=== PATIENT | female | born 1975 | race Caucasian/White ===

== ENCOUNTER 2018-10-28 11:53 | Emergency (ER) | payer OTHER ==
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
[2018-10-28 12:46] LABS: APPEARANCE,URINE SLIGHTLY-CLOUDY; BILIRUBIN,URINE NEGATIVE (NEGATIVE); COLOR,URINE YELLOW; GLUCOSE, URINE NEGATIVE (NEGATIVE); KETONES,URINE NEGATIVE (NEGATIVE); LEUKOCYTE ESTERASE,URINE TRACE (NEGATIVE); NITRITE,URINE NEGATIVE (NEGATIVE); PROTEIN,URINE NEGATIVE (NEGATIVE); URINE SPECIFIC GRAVITY 1.021; UROBILINOGEN,URINE NEGATIVE mg/dL (<2.0)
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
[2018-10-28] MEDS ORDERED: ACETAMINOPHEN 325 MG TABLET PO ONE (17:07)
[2018-10-28] MEDS ORDERED: IBUPROFEN 600 MG TABLET PO ONE (17:07)
[2018-10-28 17:37] VITALS: BP 135/82
== END 2018-10-28 17:26 | disposition home or self-care (01) ==
LOC: ER 11:53
DX: R07.81 Pleurodynia (principal); R10.32 Left lower quadrant pain; R10.814 Left lower quadrant abdominal tenderness; V43.62XA Car passenger injured in collision with other type car in traffic accident, initial encounter; J98.11 Atelectasis; Z87.891 Personal history of nicotine dependence
CPT/HCPCS: 74177; 81001; 99284

== ENCOUNTER 2019-01-10 09:54 | Emergency (ER) | payer BC, OTHER ==
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
[2019-01-10 10:36] LABS: APPEARANCE,URINE CLOUDY; BILIRUBIN,URINE NEGATIVE (NEGATIVE); COLOR,URINE YELLOW; GLUCOSE, URINE NEGATIVE (NEGATIVE); KETONES,URINE NEGATIVE (NEGATIVE); LEUKOCYTE ESTERASE,URINE LARGE (NEGATIVE); NITRITE,URINE NEGATIVE (NEGATIVE); PROTEIN,URINE NEGATIVE (NEGATIVE); URINE SPECIFIC GRAVITY 1.018; UROBILINOGEN,URINE NEGATIVE mg/dL (<2.0)
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
[2019-01-10] MEDS ORDERED: CEPHALEXIN 500 MG CAPSULE PO ONE (11:51)
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
[2019-01-10 12:27] LABS: T.VAGINALIS (WET MOUNT) TRICHOMONAS SEEN; YEAST (WET MOUNT) NO YEAST SEEN
[2019-01-10 12:28] LABS: BACTERIA (WET MOUNT) 3+ BACTERIA SEEN; RBCS (WET MOUNT) 1+ RBCS SEEN; WBCS (WET MOUNT) 2+ WBCS SEEN
[2019-01-10] MEDS ORDERED: METRONIDAZOLE 500 MG TABLET PO ONE (12:57)
[2019-01-10 13:16] VITALS: BP 116/81
[2019-01-10 13:58] LABS: CHLAM PCR NOT DETECTED (NOT DETECT); GON PCR NOT DETECTED (NOT DETECT)
== END 2019-01-10 13:16 | disposition home or self-care (01) ==
LOC: ER 09:54
DX: N76.0 Acute vaginitis (principal); B96.89 Other specified bacterial agents as the cause of diseases classified elsewhere; N30.01 Acute cystitis with hematuria; R10.2 Pelvic and perineal pain; M79.671 Pain in right foot; M25.571 Pain in right ankle and joints of right foot
CPT/HCPCS: 81001; 87210; 87491; 87591; 99283

== ENCOUNTER 2019-07-10 11:50 | Emergency (ER) | payer BC, MEDICAID ==
[2019-07-10] MEDS ORDERED: METHOCARBAMOL 750 MG TABLET PO ONE (12:51)
[2019-07-10] MEDS ORDERED: KETOROLAC TROMETHAMINE 60 MG/2 ML SDV IM ONE (12:51)
--- NOTE | 2019-07-10 12:52 | ER Document Report ---
HPI - HPI Time Seen by Provider: 07/10/19 12:47 Notes: Otherwise healthy 44-year-old female presenting with left knee pain and low back pain. Patient reports she has chronic low back pain and it has been acting up since Monday when she was jumping up and down celebrating for someone's day and twisted her knee as well. Patient ambulated into the emergency department with a steady gait. - REPRODUCTIVE Reproductive: DENIES: : Past Medical History - General Information source: Patient - Social History Smoking Status: Never Smoker Frequency of alcohol use: None Drug Abuse: None Family History: Reviewed & Not Pertinent - Medical History Medical History: Negative Renal/ Medical History: Denies: Hx Peritoneal Dialysis Past Surgical History: Reports: Hx Orthopedic Surgery - Right wrist, Hx Tonsillectomy, Hx Tubal Ligation Vertical Provider Document - CONSTITUTIONAL Notes: PHYSICAL EXAMINATION: GENERAL: Well-appearing, well-nourished and in no acute distress. HEAD: Atraumatic, normocephalic. EYES: Pupils equal round extraocular movements intact, conjunctiva are normal. ENT: Nares patent NECK: Normal range of motion LUNGS: No respiratory distress Musculoskeletal: Normal range of motion, tenderness to palpation to left lumbar paraspinous area, no vertebral tenderness, step-off or deformity. Tenderness to anterior left knee, no erythema, ecchymosis or swelling noted. No crepitus. NEUROLOGICAL: Normal speech, normal gait. PSYCH: Normal mood, normal affect. SKIN: Warm, Dry, normal turgor, no rashes or lesions noted. - INFECTION CONTROL TRAVEL OUTSIDE OF THE [place] IN LAST 30 DAYS: No Course - Re-evaluation Re-evalutation: Patient reports improvement of her back pain after administration of medications here in the emergency department. X-ray of the knee is negative. Patient will be discharged home in stable condition at this time. Encourage follow-up with PCP or Ortho if pain persists. The patient's emergency department workup and current diagnosis were explained to the patient and or family. Follow-up instructions were provided. Medications if prescribed were discussed. Instructions for when to return to the emergency department including specific worrisome symptoms were discussed with the patient and/or family. - Vital Signs Vital signs: Temp Pulse Resp BP Pulse Ox 98.0 F 71 16 148/82 H 97 07/10/19 12:41 07/10/19 12:41 07/10/19 12:41 07/10/19 12:41 07/10/19 12:41 Procedures - Immobilization Left knee Immobilizer type: Chalo wrap, Crutches Performed by: PCT Post-Proc Neuro Vasc Exam: Normal Discharge - Discharge Clinical Impression: Low back pain Qualifiers: Chronicity: chronic Back pain laterality: unspecified Sciatica presence: unspecified whether sciatica present Qualified Code(s): M54.5 - Low back pain Knee pain Qualifiers: Chronicity: acute Laterality: left Qualified Code(s): M25.562 - Pain in left knee Condition: Stable Disposition: HOME, SELF-CARE Additional Instructions: The x-ray of your knee was unremarkable and without any fracture or dislocation. Please follow below directions. Keep the Chalo wrap in place for comfort and support. Ice & Elevation Apply ice packs frequently against the painful area. Many different schedules are recommended, such as "20 minutes on, 20 minutes off" or "one hour ice, two hours rest." If you need to work, you may need to go longer between ice treatments. You should plan to have the area ice packed AT LEAST one-fourth of the time. The ice should be applied over the wrap, tape, or splint, or over a layer of cloth -- not directly against the skin. Some ice bags have a built-in cloth and can be put directly on the skin. Your injured part should be elevated as much as possible over the next 48 hours. Try to keep the injury above the level of the heart. Avoid use of the injured area. Elevation and rest will decrease the swelling. Ibuprofen Ibuprofen is an excellent, safe drug for pain control. In addition, it has potent antiinflammatory effects which are beneficial, especially in the treatment of injuries, arthritis, or tendonitis. It's best to take ibuprofen with food. Persons with ulcer disease or allergy to aspirin should notify their physician of this before taking ibuprofen. Take the medication exactly as prescribed. Don't take additional doses unless instructed to do so by your doctor. If you develop wheezing, shortness of breath, hives, faintness, stomach pain, vomiting, or dark black stools, return for re-evaluation at once. The x-rays were negative for any fracture or dislocation. Please take ibuprofen [id number] as directed to help with pain and inflammation. Forms: Return to Work
--- NOTE | 2019-07-10 13:24 | RADIOLOGY REPORT (SQ) ---
EXAM DESCRIPTION: KNEE LEFT 4 VIEW COMPLETED DATE/TIME: 07/10/2019 1:12 pm REASON FOR STUDY: jumped, now pain COMPARISON: None. NUMBER OF VIEWS: Four views. TECHNIQUE: AP, lateral, and both oblique radiographic images acquired of the left knee. LIMITATIONS: None. FINDINGS: MINERALIZATION: Normal. BONES: No acute fracture or dislocation. JOINT: No effusion. SOFT TISSUES: The quadriceps and patellar tendon silhouettes are intact. There is no prepatellar sof t tissue swelling. OTHER: No other finding. IMPRESSION: No acute osseous abnormality of the left knee. TECHNICAL DOCUMENTATION: JOB ID: [id number] [employer]- All Rights Reserved Reading location - IP/workstation name: [email or web address]
[2019-07-10 14:20] VITALS: BP 131/78
== END 2019-07-10 14:21 | disposition home or self-care (01) ==
LOC: ER 11:50
DX: M25.562 Pain in left knee (principal); G89.29 Other chronic pain; M54.5 Low back pain
CPT/HCPCS: 99283; 96372; 73564; J1885; J3490

== ENCOUNTER 2019-07-29 10:02 | Emergency (ER) | payer SELFPAY ==
[2019-07-29 10:09] VITALS: BP 141/79
[2019-07-29] MEDS ORDERED: ACETAMINOPHEN 325 MG TABLET PO ONE (10:54)
--- NOTE | 2019-07-29 10:58 | ER Document Report ---
HPI - HPI Patient complains to provider of: Left lower leg pain Time Seen by Provider: 07/29/19 10:50 Onset: Other - 1 Onset/Duration: Persistent Pain Level: 1 Context: 44-year-old female presents emergency department complaints of left lower leg calf pain for the past month. Reports she took a trip to [place]. She is not taking control she does not smoke. She reports she may have had a blood clot when she was . She denies injury. Denies fever vomiting diarrhea. Associated Symptoms: None Exacerbated by: Denies Relieved by: Denies Similar symptoms previously: No Recently seen / treated by doctor: No - REPRODUCTIVE Reproductive: DENIES: : - MUSCULOSKELETAL Musculoskeletal: REPORTS: Extremity pain Past Medical History - General Information source: Patient Last Menstrual Period: Reports menopause - Social History Smoking Status: Former Smoker Cigarette use (# per day): No Frequency of alcohol use: None Drug Abuse: None Family History: Reviewed & Not Pertinent Patient has suicidal ideation: No Patient has homicidal ideation: No - Past Medical History Cardiac Medical History: Reports: Hx DVT Renal/ Medical History: Denies: Hx Peritoneal Dialysis GI Medical History: Reports: Hx Gastroesophageal Reflux Disease Past Surgical History: Reports: Hx Orthopedic Surgery - Right wrist, Hx Tonsillectomy, Hx Tubal Ligation Vertical Provider Document - CONSTITUTIONAL Agree With Documented VS: Yes Exam Limitations: No Limitations General Appearance: WD/WN, No Apparent Distress - INFECTION CONTROL TRAVEL OUTSIDE OF THE [place] IN LAST 30 DAYS: No - HEENT HEENT: Atraumatic, Normocephalic - NECK Neck: Supple - RESPIRATORY Respiratory: Breath Sounds Normal, No Respiratory Distress - CARDIOVASCULAR Cardiovascular: Regular Rate - MUSCULOSKELETAL/EXTREMETIES Musculoskeletal/Extremeties: MAEW, FROM, Non-Tender - Left lower leg calf pain nontender palpation good pedal pulse cap refill only than 2 seconds no erythema no warmth no swelling, calf measurements 36 cm bilateral - NEURO Level of Consciousness: Awake, Alert, Appropriate Motor/Sensory: No Motor Deficit - DERM Integumentary: Warm, Dry Course - Re-evaluation Re-evalutation: 07/29/19 10:56 Doppler ordered for left lower leg pain with possible history of DVT. No obvious signs of DVT no erythema no warmth no swelling patient reports pain for the past month. 07/29/19 DVT negative per tech. Patient does not look like she has a DVT. She was instructed on results. Instructed on Motrin for pain follow-up with primary care provider she verbalized understanding to all instructions. Venous Doppler Study 07/29/19 10:53 IMPRESSION: NO EVIDENCE DVT OR SVT IN THE LEFT LEG. - Vital Signs Vital signs: Temp Pulse Resp BP Pulse Ox 98.2 F 85 15 141/79 H 96 07/29/19 10:09 07/29/19 10:09 07/29/19 10:09 07/29/19 10:09 07/29/19 10:09 Discharge - Discharge Clinical Impression: Left leg pain Condition: Stable Disposition: HOME, SELF-CARE Additional Instructions: *You have been evaluated for left lower leg pain *Your Doppler was negative for a blood clot *Take tylenol as indicated for pain *Follow up with your primary care within 1 week for recheck *Return to ED for worsening condition, changes, needs Monitor your blood pressure. Your blood pressure was elevated today. This may be because you were anxious, in pain or because you need medication. It is important to follow up with your primary care provider for full evaluation. Forms: Elevated Blood Pressure
--- NOTE | 2019-07-29 12:30 | RADIOLOGY REPORT (SQ) ---
EXAM DESCRIPTION: VENOUS UNILATERAL LOWER COMPLETED DATE/TIME: 07/29/2019 12:15 pm REASON FOR STUDY: pain to calf reports hx dvt COMPARISON: None. TECHNIQUE: Dynamic and static carmona scale and color images acquired of the left leg venous system. Se lected spectral images acquired with additional compression and augmentation maneuvers. The contralat eral common femoral vein and saphenofemoral junction were also imaged. Images stored on PACS. LIMITATIONS: None. FINDINGS: COMMON FEMORAL: Normal phasicity, compression and augmentation. No visualized echogenic ma terial on carmona scale. No defects on color images. FEMORAL: Normal compression and augmentation. No visualized echogenic material on carmona scale. No defe cts on color images. POPLITEAL: Normal compression, augmentation. No visualized echogenic material on carmona scale. No defec ts on color images. CALF VESSELS: Normal compression, augmentation. No visualized echogenic material on carmona scale. No de fects on color images. GSV and SSV: Normal compression, augmentation. No visualized echogenic material on carmona scale. No def ects on color images. ANY DEEP VENOUS INSUFFICIENCY: No. ANY EVIDENCE OF POPLITEAL CYST: No. OTHER: No other significant finding. CONTRALATERAL COMMON FEMORAL VEIN AND SAPHENOFEMORAL JUNCTION: Normal phasicity, compression and augmentation. No visualized echogenic material on carmona scale. No de fects on color images. IMPRESSION: NO EVIDENCE DVT OR SVT IN THE LEFT LEG. TECHNICAL DOCUMENTATION: JOB ID: [id number] [employer]- All Rights Reserved Reading location - IP/workstation name: [email or web address]
== END 2019-07-29 12:41 | disposition home or self-care (01) ==
LOC: ER 10:02
DX: M79.662 Pain in left lower leg (principal); Z87.891 Personal history of nicotine dependence
CPT/HCPCS: 93971; 99283

== ENCOUNTER 2020-02-06 09:44 | Emergency (ER) | payer SELFPAY ==
[2020-02-06 09:54] VITALS: BP 128/75
--- NOTE | 2020-02-06 10:10 | ER Document Report ---
HPI - HPI Patient complains to provider of: Shoulder pain Time Seen by Provider: 02/06/20 09:48 Onset: Other - This 44-year-old female presents to the emergency room today stating that she has developed pain to her left shoulder subscapular Bob she states she woke up that way she is a side sleeper. Onset/Duration: Waxing and waning Quality of pain: Achy Pain Level: 2 Associated Symptoms: None Exacerbated by: Denies Relieved by: Denies - REPRODUCTIVE Reproductive: DENIES: : Past Medical History - General Information source: Patient - Social History Smoking Status: Never Smoker Cigarette use (# per day): No Chew tobacco use (# tins/day): No Smoking Education Provided: No Frequency of alcohol use: None Drug Abuse: None Family History: Reviewed & Not Pertinent - Past Medical History Cardiac Medical History: Reports: Hx DVT Renal/ Medical History: Denies: Hx Peritoneal Dialysis GI Medical History: Reports: Hx Gastroesophageal Reflux Disease Past Surgical History: Reports: Hx Orthopedic Surgery - Right wrist, Hx Tonsillectomy, Hx Tubal Ligation Vertical Provider Document - CONSTITUTIONAL Agree With Documented VS: Yes - INFECTION CONTROL TRAVEL OUTSIDE OF THE [place] IN LAST 30 DAYS: No - HEENT HEENT: Atraumatic, Conjuctival Injection, Normocephalic, PERRLA - NECK Neck: Normal Inspection - RESPIRATORY Respiratory: Breath Sounds Normal, No Respiratory Distress - CARDIOVASCULAR Cardiovascular: Regular Rate - GI/ABDOMEN Gastrointestinal: Abdomen Soft, Abdomen Non-Tender - REPRODUCTIVE Female Genitalia: Normal Inspection - BACK Back: Normal Inspection - MUSCULOSKELETAL/EXTREMETIES Musculoskeletal/Extremeties: MAEW - NEURO Level of Consciousness: Awake, Alert Motor/Sensory: No Motor Deficit - DERM Integumentary: Warm Course - Re-evaluation Re-evalutation: 02/06/20 10:06 Patient has no chest pain or shortness of breath no exertional chest pain no exertional shortness of breath the discomfort was in the subscapular area to the right side which occurred upon waking up yesterday she is in fact a slight side sleeper. This is occurred in the past on occasion. She has full range of motion to the right upper extremity flexion-extension warm to the touch good capillary refill and distal pulses. - Vital Signs Vital signs: Temp Pulse Resp BP Pulse Ox 98.7 F 78 16 128/75 H 99 02/06/20 09:52 02/06/20 09:52 02/06/20 09:52 02/06/20 09:52 02/06/20 09:52 Discharge - Discharge Clinical Impression: Muscle spasm Disposition: HOME, SELF-CARE Instructions: Muscle Strain ([facility]) Prescriptions: Methocarbamol [Robaxin 750 mg Tablet] 750 mg PO ASDIR PRN #40 tablet PRN Reason:
== END 2020-02-06 10:13 | disposition home or self-care (01) ==
LOC: ER 09:44
DX: M62.838 Other muscle spasm (principal); M25.512 Pain in left shoulder
CPT/HCPCS: 99283

== ENCOUNTER 2020-08-18 13:34 | Emergency (ER) | payer SELFPAY ==
--- NOTE | 2020-08-18 14:40 | ER Document Report ---
ED Medical Screen (RME) - General Chief Complaint: Chest Pain Stated Complaint: CHEST PAIN Time Seen by Provider: 08/18/20 14:29 Mode of Arrival: Ambulatory Information source: Patient TRAVEL OUTSIDE OF THE [place] IN LAST 30 DAYS: No - HPI Patient complains to provider of: Chest pain/rib pain/dizziness Notes: 08/18/20 14:35 Patient here with complaints of left-sided chest pain. The patient states that she fell on Monday and injured her left ribs. Since that time she been having left rib pain. She also states that she has been having some anterior chest pain and some occasional dizziness. Exam: No distress, nontoxic appearing. Lungs clear and equal throughout. Ecchymosis to the left chest wall with mild tenderness to palpation. No crepitus. Heart sounds normal. An initial examination was made on the patient as part of the triage process, and it was determined a more comprehensive evaluation was necessary. Initial orders were placed and patient was transferred to another provider in the ED who assumed care and finished evaluation and plan. - Related Data Allergies/Adverse Reactions: No Known Allergies Allergy (Unverified 08/18/20 14:23) Past Medical History - Social History Chew tobacco use (# tins/day): No Frequency of alcohol use: Rare Drug Abuse: None - Past Medical History Cardiac Medical History: Reports: Hx DVT Renal/ Medical History: Denies: Hx Peritoneal Dialysis GI Medical History: Reports: Hx Gastroesophageal Reflux Disease Past Surgical History: Reports: Hx Orthopedic Surgery - Right wrist, Hx Tonsillectomy, Hx Tubal Ligation Physical Exam - Vital signs Vitals: Temp Pulse Resp BP Pulse Ox 98.1 F 79 16 127/72 H 98 08/18/20 13:49 08/18/20 13:49 08/18/20 13:49 08/18/20 13:49 08/18/20 13:49 Course - Vital Signs Vital signs: Temp Pulse Resp BP Pulse Ox 98.1 F 79 16 127/72 H 98 08/18/20 13:49 08/18/20 13:49 08/18/20 13:49 08/18/20 13:49 08/18/20 13:49
--- NOTE | 2020-08-18 15:02 | RADIOLOGY REPORT (SQ) ---
EXAM DESCRIPTION: RIBS LEFT W/PA CHEST IMAGES COMPLETED DATE/TIME: 08/18/2020 2:47 pm REASON FOR STUDY: fall, left lateral pain, anterior CP as well COMPARISON: None. TECHNIQUE: Frontal view of the chest and additional views of the left ribs acquired. NUMBER OF VIEWS: Three view. LIMITATIONS: None. FINDINGS: FRONTAL CXR: No pneumothorax. No pleural effusion. No atelectasis or infiltrates. RIBS: No acute displaced rib fractures. No lytic or blastic bony lesions. OTHER: No other significant finding. IMPRESSION: 1. NO PNEUMOTHORAX. 2. NO acute DISPLACED RIB FRACTURES. COMMENT: SITE OF TRAUMA/COMPLAINT MARKED/STAMP COMPLETED: NO. TECHNICAL DOCUMENTATION: JOB ID: [id number] 2010 [employer] All Rights Reserved Reading location - IP/workstation name: [email or web address]
[2020-08-18 15:03] LABS: ABSOLUTE EOSINOPHILS # (AUTO) 0.1 10^3/uL (0.0-0.6); ABSOLUTE LYMPHOCYTES (AUTO) 2.5 10^3/uL (0.5-4.7); ABSOLUTE MONOCYTES (AUTO) 0.5 10^3/uL (0.1-1.4); ABSOLUTE NEUT (AUTO) 4.4 10^3/uL (1.7-8.2); BASOPHILS % (AUTO) 0.5 % (0-2); HEMOGLOBIN 13.7 g/dL (12.0-15.5); LYMPHOCYTES % (AUTO) 33.1 % (13-45); MEAN CORPUSCULAR HEMOGLOBIN 31.7 pg (27.0-33.4); MEAN CORPUSCULAR VOLUME 90 fl (80-97); MONOCYTES % (AUTO) 6.4 % (3-13); PLATELET COUNT 284 10^3/uL (150-450); RED BLOOD COUNT 4.32 10^6/uL (3.72-5.28); RED CELL DISTRIBUTION WIDTH 12.4 % (11.5-14.0); TOTAL CELLS COUNTED % (AUTO) 100 %; WHITE BLOOD COUNT 7.4 10^3/uL (4.0-10.5)
[2020-08-18 15:26] LABS: ALBUMIN 4.3 g/dL (3.5-5.0); ALKALINE PHOSPHATASE 72 U/L (38-126); ANION GAP 6 (5-19); ASPARTATE AMINO TRANSFERASE 31 U/L (14-36); BILIRUBIN,DIRECT 0.2 mg/dL (0.0-0.4); BILIRUBIN,TOTAL 0.4 mg/dL (0.2-1.3); BLOOD UREA NITROGEN 10 mg/dL (7-20); CALCIUM 9.5 mg/dL (8.4-10.2); CARBON DIOXIDE 30 mmol/L (22-30); CHLORIDE 104 mmol/L (98-107); GLUCOSE 102 mg/dL (75-110); POTASSIUM 4.2 mmol/L (3.6-5.0); TOTAL PROTEIN 7.7 g/dL (6.3-8.2)
[2020-08-18 16:02] LABS: FREE T4 (FREE THYROXINE) 1.14 ng/dL (0.78-2.19)
[2020-08-18 16:16] LABS: THYROID STIMULATING HORMONE 1.17 uIU/mL (0.47-4.68)
--- NOTE | 2020-08-18 16:54 | ER Document Report ---
ED Cardiac - General Chief Complaint: Chest Pain Stated Complaint: CHEST PAIN Time Seen by Provider: 08/18/20 14:29 Mode of Arrival: Ambulatory Information source: Patient TRAVEL OUTSIDE OF THE [place] IN LAST 30 DAYS: No - HPI Patient complains to provider of: Chest pain Notes: Patient here with complaints of left-sided chest pain. She states that she fell earlier this week and has had left lateral chest wall pain and bruising since. She said occasionally she has some pain in the front of her chest and also feels like her heart is racing and occasionally she feels dizzy. She denies any anterior chest pain currently or dizziness currently. She denies any unilateral numbness, tingling, weakness. No blurred or loss of vision. No abdominal pain. No nausea, vomiting, diarrhea. No rash. No severe headache. Patient denies history of hypertension, high cholesterol, diabetes. No known CAD. She denies any recent long trips or surgeries, hormone use, cancer, leg pain or leg swelling, history of DVT or PE. Pain is worse with movement and palpation, nothing seems to make it better. Patient denies any other complaints. - Related Data Allergies/Adverse Reactions: No Known Allergies Allergy (Unverified 08/18/20 14:23) Past Medical History - General Information source: Patient - Social History Smoking Status: Former Smoker Chew tobacco use (# tins/day): No Frequency of alcohol use: Rare Drug Abuse: None Family History: Reviewed & Not Pertinent - Past Medical History Cardiac Medical History: Reports: Hx DVT Renal/ Medical History: Denies: Hx Peritoneal Dialysis GI Medical History: Reports: Hx Gastroesophageal Reflux Disease Past Surgical History: Reports: Hx Orthopedic Surgery - Right wrist, Hx Tonsillectomy, Hx Tubal Ligation Review of Systems - Review of Systems -: Yes All other systems reviewed and negative Physical Exam - Vital signs Vitals: Temp Pulse Resp BP Pulse Ox 98.1 F 79 16 127/72 H 98 08/18/20 13:49 08/18/20 13:49 08/18/20 13:49 08/18/20 13:49 08/18/20 13:49 - Notes Notes: GENERAL: alert, cooperative, nontoxic, no distress. HEAD: normocephalic, atraumatic EYES: conjunctiva pink without discharge, no external redness or swelling. EARS: no external swelling, no external redness NOSE: atraumatic, no external swelling MOUTH/THROAT: mucous membranes moist and pink, posterior pharynx without erythema, swelling, exudate. No trismus or drooling. NECK: soft, supple, full range of motion, no meningismus. CHEST: no distress, lungs clear and equal throughout. No wheezing, rales, rhonchi. Ecchymosis to the left lateral chest with some mild tenderness to palpation. There is no crepitus. No deformity. No flail chest. CARDIAC: regular rate and rhythm, no murmur ABDOMEN: Soft, nontender to palpation. BACK: full range of motion EXTREMITIES: full range of motion of all extremities. No redness, no swelling. Small bruise to the left biceps area. No significant tenderness to palpation. Normal pulse and sensation distally. Compartments are soft. NEURO: alert and oriented x 3, no focal deficits, full range of motion of all extremities. Cranial nerves II through XII are grossly intact. Equal push and pull both upper and lower extremities. PYSCH: appropriate mood, affect. Patient is cooperative. SKIN: pink, warm, dry, no rash. Course - Re-evaluation Re-evalutation: 08/18/20 16:53 Patient is resting comfortably at this time. Have gone over results with the patient. Questions have been answered. Will discharge home. 08/18/20 16:54 Patient is nontoxic-appearing with stable vitals. Here with complaints of some left-sided chest pain after she fell and injured herself several days ago. She is noted to have some ecchymosis to the left lateral ribs. There is no crepitus. Lungs are clear and equal throughout. She is not hypoxic or tachypneic. Left ribs with chest show no acute abnormality. Patient states that she has also been occasionally having some anterior chest pain as well as some dizziness and feeling like her heart was racing. She diet denies no symptoms currently. Her EKG is normal. Labs show normal white count of 7, hemoglobin of 13. Chemistries were all normal including magnesium. Troponin is less than 0.012. TSH and free T4 are normal as well. Patient has a nonfocal neuro exam. Her symptoms are very atypical for ACS. The patient has no pulmonary embolism risk factors and is PERC rule negative for PE. Symptoms are very unlikely to be related to pulmonary embolism. This point believe the patie nt's pain is likely secondary to her fall. At this point believe the patient can be discharged home with a prescription for NSAIDs. Instructions to apply ice to the sore. Follow-up with her primary care doctor at the next available appointment. Follow-up sooner for any worsening pain, fever, numbness, tingling, weakness, significant shortness of breath, passing out, or for any further concerns. The patient's emergency department workup and current diagnosis were explained to the patient and or family. Follow-up instructions were provided. Medications if prescribed were discussed. Instructions for when to return to the emergency department including specific worrisome symptoms were discussed with the patient and/or family. - Vital Signs Vital signs: Temp Pulse Resp BP Pulse Ox 98.1 F 79 16 127/72 H 98 08/18/20 13:49 08/18/20 13:49 08/18/20 13:49 08/18/20 13:49 08/18/20 13:49 - Laboratory Results Result Diagrams: 08/18/20 14:40 08/18/20 14:40 Critical Laboratory Results Reviewed: No Critical Results - Radiology Results Critical Radiology Results Reviewed: No Critical Results - EKG Interpretation by Co EKG shows normal: Sinus rhythm Rate: Normal Additional EKG results interpreted by la: 08/18/20 16:52 EKG shows a normal sinus rhythm. Ventricular rate of 84. AL interval 144, QRS duration 72, QT interval 368. No ST elevation or depression. No STEMI. Discharge - Discharge Clinical Impression: Soft tissue injury of left chest wall, Palpitation, Dizziness Condition: Stable Disposition: HOME, SELF-CARE Instructions: Chest Wall Pain ([facility]), Chest Pain of Unclear Cause ([facility]), Palpitations (Irregular or Rapid Heartrate) ([facility]), Dizziness ([facility]) Additional Instructions: Take medications as prescribed. Drink plenty of fluids. Follow-up with your doctor at the next available appointment. Follow-up sooner for worsening pain, high fever, persistent vomiting, difficulty breathing, passing out, numbness, tingling, weakness, any further concerns. Prescriptions: Diclofenac Sodium [Amearejennifer 50 Mg Graham.] 50 mg PO BID #20 tablet. Referrals: [facility] [Provider Group] - Follow up as needed
[2020-08-18 17:11] VITALS: BP 122/62
--- NOTE | 2020-08-18 17:47 | EKG REPORT ---
SEVERITY:- BORDERLINE ECG - SINUS RHYTHM NONSPECIFIC ST-T CHANGES- INFERIOR LEADS : Confirmed by: Jude Rzio MD 18-Aug-2020 17:46:20
== END 2020-08-18 17:11 | disposition home or self-care (01) ==
LOC: ER 13:34
DX: S20.212A Contusion of left front wall of thorax, initial encounter (principal); S40.022A Contusion of left upper arm, initial encounter; R07.89 Other chest pain; W01.0XXA Fall on same level from slipping, tripping and stumbling without subsequent striking against object, initial encounter; R42 Dizziness and giddiness; R00.2 Palpitations; Z87.891 Personal history of nicotine dependence
CPT/HCPCS: 36415; 80053; 83735; 84439; 84443; 84484; 85025; 93005; 93010; 99285